=== PATIENT | male | born 1945 | race Two or more races ===

== ENCOUNTER 2017-05-04 13:02 | Emergency (ER) | payer OTHER ==
[2017-05-04] MEDS ORDERED: PIPERACILLIN/TAZO/PMX 3.375GM 50 ML IVPB ONE (13:30)
[2017-05-04] MEDS ORDERED: SODIUM CHLORIDE 0.9% 1,000ML IVBOLUS ONE (13:30)
[2017-05-04] MEDS ORDERED: VANCOMYCIN PER PHARMACY MC ONE (13:30)
[2017-05-04] MEDS ORDERED: SODIUM CHLORIDE FLUSH 10ML SYR IVF ONE (13:30)
[2017-05-04] MEDS ORDERED: PLEASE ENTER HEIGHT AND WEIGHT MC SCH (13:30)
[2017-05-04] MEDS ORDERED: PLEASE ENTER ALLERGIES MC SCH ×2 (13:30)
[2017-05-04] MEDS ORDERED: ACETAMINOPHEN 325 MG TABLET PO ONE (13:30)
== END 2017-05-05 01:40 ==
LOC: ED 05-05 01:34
DX: Z02.9 Encounter for administrative examinations, unspecified (principal)
CPT/HCPCS: 93005